=== PATIENT | female | born 1995 | race Caucasian/White ===

== ENCOUNTER 2019-03-31 09:20 | Emergency (ER) | payer MEDICAID, OTHER ==
[~2019-03-31] VITALS: Ht 160 cm; Wt 86.2 kg
[2019-03-31 09:25] VITALS: BP_SYST 110
--- NOTE | 2019-03-31 09:31 | NUR ---
Patient to ER bed 03 to gown for evaluation. Side rails up.
--- NOTE | 2019-03-31 09:32 | NUR ---
Pt brought by self, A&Ox4, pt presents to ER with rene knee pain after she fell during skating, pain is worse on L leg, skin pink and warm, cap refill<3, VSS.
--- NOTE | 2019-03-31 09:45 | NUR ---
Dr Dela Cruz at bedside examining patient
[2019-03-31 11:41] VITALS: BP_SYST 108
--- NOTE | 2019-03-31 11:42 | NUR ---
Patient given written and verbal discharge instructions and verbalizes understanding. ER MD discussed with patient the results and treatment provided. Patient in stable condition. ID arm band removed. Rx of Motrin and Tramadol given. Patient educated on pain management and to follow up with PMD. Pain Scale 3/10 tolerable for patient . Opportunity for questions provided and answered. Medication side effect fact sheet provided.
== END 2019-03-31 11:42 | disposition home or self-care (01) ==
LOC: SED 09:20
DX: S83.91XA Sprain of unspecified site of right knee, initial encounter (principal); S83.92XA Sprain of unspecified site of left knee, initial encounter; Z88.0 Allergy status to penicillin; W18.39XA Other fall on same level, initial encounter; Y93.51 Activity, roller skating (inline) and skateboarding; Y92.89 Other specified places as the place of occurrence of the external cause; Y99.8 Other external cause status
CPT/HCPCS: 99283